=== PATIENT | female | born 1975 | race Caucasian/White ===

== ENCOUNTER 2023-10-20 02:27 | Observation (INO) | payer MEDICARE, OTHER ==
[~2023-10-20] VITALS: Ht 160 cm; Wt 66.5 kg
[2023-10-20] VITALS (20 sets, daily range): BP systolic 107–160; BP diastolic 74–86
[2023-10-20 02:59] LABS: Source, Urine Clean Catch
[2023-10-20 03:02] LABS: Bilirubin, Urine Neg (Neg); Blood, Urine 2+ (Neg); Glucose Qualitative, Urine Neg (Neg); Ketones, Urine Neg (Neg); Leukocyte Esterase, Urine Neg (Neg); Nitrite, Urine Neg (Neg); Protein, Urine Neg (Neg); Urobilinogen, Urine NORM (Normal)
[2023-10-20 03:13] LABS: BASOPHILS ABSOLUTE AUTO 0.09 K/mm3 (0.00-0.23); BASOPHILS PERCENT AUTO 1 % (0-2); EOSINOPHILS ABSOLUTE AUTO 0.31 K/mm3 (0.00-0.68); EOSINOPHILS PERCENT AUTO 3 % (0-6); Hematocrit 19.8 % (33.0-51.0); IMMATURE GRAN ABSOLUTE AUTO 0.06 K/mm3 (0.00-0.10); IMMATURE GRAN PERCENT AUTO 1 % (0-1); LYMPHOCYTES PERCENT AUTO 15 % (21-46); MONOCYTES ABSOLUTE AUTO 0.71 K/mm3 (0.16-1.47); MONOCYTES PERCENT AUTO 7 % (4-13); Mean Corpuscular HGB 19.1 pg (26.0-34.0); Mean Corpuscular HGB Conc 27.3 g/dL (31.5-36.5); Mean Corpuscular Volume 70 fL (80-100); Mean Platelet Volume 10.3 fL (9.1-12.4); NEUTROPHILS ABSOLUTE AUTO 7.09 K/mm3 (1.96-9.15); NEUTROPHILS PERCENT AUTO 73 % (41-73); Platelet Count 306 K/mm3 (150-400); RDW Coefficient Variation 19.9 % (11.7-14.2); RDW Standard Deviation 49.2 fL (35.1-46.3); Red Blood Cell Count 2.82 M/mm3 (3.80-5.20); White Blood Cell Count 9.76 K/mm3 (4.00-11.30)
[2023-10-20 03:25] LABS: Hemoglobin 5.4 g/dL (11.5-16.0)
[2023-10-20 03:33] LABS: Albumin, Blood 3.3 g/dL (3.4-5.0); Bilirubin, Total 0.1 mg/dL (0.1-1.0); Bun/Creatinine Ratio 35.8 (12.0-20.0); Creatinine, Blood 0.56 mg/dL (0.40-1.00); Globulin, Blood 3.3 g/dL (2.2-4.0); Potassium, Blood 4.4 mmol/L (3.5-5.5); Total Protein, Blood 6.6 g/dL (6.4-8.2)
[2023-10-20 03:36] LABS: International Normalized Ratio 0.94; Prothrombin Time Results 9.9 Sec (9.7-11.5)
[2023-10-20 04:29] LABS: Color, Urine Yellow (P-Yellow)
[2023-10-20 04:30] LABS: Appearance, Urine Clear (Clear)
[2023-10-20 04:32] LABS: Bacteria Rare /hpf; Squamous Epithelial Cells Not Seen /hpf (Few); White Blood Cells, Urine 0-2 /hpf (0-5)
--- NOTE | 2023-10-20 07:46 | NUR ---
SHIFT SUMMARY NOC. PT ARRIVED TO THE UNIT FROM ER AT 0620. REPORT RECEIVED FROM [employer]ATION[employer] MANAGER. PT HAD 1 UNIT OF BLOOD STARTED AT 0545 PRIOR TO TRANSFER. VITAL SIGNS STABLE UPON ARRIVAL. PT DENIES SOB OR CHEST PAIN. PT A/O X4. PT REPORTS BEING A CURRENT EVERYDAY SMOKER AND HAS A REAL ESTATE JOB TITLES ON PERSON. BLOOD PRODUCTS RUNNING AT A RATE OF 150 ON ARRIVAL. PT NOTIFIED OF SMOKING POLICY AND LOCKED REAL ESTATE JOB TITLES IN LOCK BOX ON THE UNIT. PT ORIENTED TO ROOM AND CALL LIGHT. PT INSTRUCTED TO CALL STAFF FOR CP, DIZZINESS, SOB OR ANY ABNORMAL SYMPTOMS. PT HAS MODERATE BLOOD ON HA PAD. PT RESTING WITH CALL LIGHT IN REACH.
--- NOTE | 2023-10-20 10:34 | NUR ---
second unit of blood administering at this time. pt tolerating well. currently sleeping in bed. pt npo at this time for possible procedure later in the afternoon. pt agreeable and educated on plan. pad changed this morning at 0730, small amount on pad. pt also had tampon in with large clot attached when removed. educated pt on importance of monitoring bleeding and using pads to observe. pt agreeable.
--- NOTE | 2023-10-20 11:26 | NUR ---
pad changed at this time. moderate amount of drainage on pad. 2nd unit of prbc continues to infuse. pt tolerating well.
--- NOTE | 2023-10-20 13:17 | NUR ---
TRANSFUSION DONE. PT TOLERATED WELL. NO SOB REPORTED. FEELS MORE ENERGETIC ABLE TO WALK TO RESTROOM WITH SBA NO WEAKNESS NOTED.
[2023-10-20 14:14] LABS: Hematocrit 24.6 % (33.0-51.0); Hemoglobin 7.2 g/dL (11.5-16.0); Mean Corpuscular HGB 21.6 pg (26.0-34.0); Mean Corpuscular HGB Conc 29.3 g/dL (31.5-36.5); Mean Corpuscular Volume 74 fL (80-100); Mean Platelet Volume 10.1 fL (9.1-12.4); Platelet Count 248 K/mm3 (150-400); RDW Coefficient Variation 22.8 % (11.7-14.2); RDW Standard Deviation 59.6 fL (35.1-46.3); Red Blood Cell Count 3.34 M/mm3 (3.80-5.20); White Blood Cell Count 7.26 K/mm3 (4.00-11.30)
--- NOTE | 2023-10-20 14:14 | NUR ---
pt out of room for procedure at this time.
[2023-10-20 14:45] LABS: BASOPHILS ABSOLUTE MAN 0.07 K/mm3 (0.00-0.23); BASOPHILS PERCENT MAN 1 % (0-2); EOSINOPHILS ABSOLUTE MAN 0.07 K/mm3 (0.00-0.68); EOSINOPHILS PERCENT MAN 1 % (0-6); LYMPHOCYTES % ATYPICAL MANUAL 1 % (0-0); LYMPHOCYTES ABSOLUTE MAN 2.32 K/mm3 (0.84-5.20); LYMPHOCYTES PERCENT MAN 31 % (21-46); MONOCYTES ABSOLUTE MAN 0.43 K/mm3 (0.16-1.47); MONOCYTES PERCENT MAN 6 % (4-13); NEUTROPHILS ABSOLUTE MAN 4.35 K/mm3 (1.96-9.15); SEG NEUTROPHILS PERCENT MAN 60 % (41-73); TOTAL CELLS COUNTED 100
--- NOTE | 2023-10-20 16:04 | NUR ---
pt arrived from procedure, able to stand and ambulate to restroom. scant amount of drainage on amy pad, changed on arrival. small amount of sanguinous out when pt attempted to void. she denies pain and reports feeling good at this time. excited to be able to eat and drink. currently resting in bed, denies sob.
--- NOTE | 2023-10-20 17:04 | NUR ---
SHIFT SUMMARY S/P EXAM UNDER ANESTHESIA. PT DENIES PAIN SINCE ARRIVING BACK TO UNIT. MINIMAL BLEEDING SINCE ARRIVAL CLEAN PAD IN PLACE. PT AMBULATING WELL TO RESTROOM NO WEAKNESS NOTED. REPORTS FEELING BETTER SINCE RECIEVING BLOOD. PLAN IS FOR POSSIBLE DISCHARGE TOMORROW WITH FOLLOW UP. PT TOLERATING DIET WELL.
--- NOTE | 2023-10-20 17:22 | NUR ---
PT PASSED A LARGE CLOT WHILE VOIDING. SMALL AMOUNT PRESENT ON HYMAN PAD WHEN SHE STOOD TO AMBULATE TO RESTROOM.
--- NOTE | 2023-10-20 22:41 | NUR ---
PT REPORTS HER COUSIN CHRISTIE GONZALEZ IS HER NEXT OF KIN AND HIS PHONE NUMBER IS [phone].
[2023-10-21 00:41] VITALS: BP 145/84
[2023-10-21 04:15] VITALS: BP 147/82
--- NOTE | 2023-10-21 04:31 | NUR ---
SHIFT SUMMARY NO ACUTE CHANGES THIS SHIFT. TYLENOL PRN FOR CRAMPY PAINS. SMALL AMOUNTS OF VAGINAL BLEEDING NOTED, BUT NO LARGE CLOTS. PT HAS BEEN INDEPENDENTLY AMBULATING HALLWAY. LUDWIG PO. VSS. USES CALL LIGHT APPROPRIATELY.
[2023-10-21 05:31] LABS: BASOPHILS ABSOLUTE AUTO 0.07 K/mm3 (0.00-0.23); BASOPHILS PERCENT AUTO 1 % (0-2); EOSINOPHILS ABSOLUTE AUTO 0.02 K/mm3 (0.00-0.68); EOSINOPHILS PERCENT AUTO 0 % (0-6); Hematocrit 26.1 % (33.0-51.0); Hemoglobin 7.5 g/dL (11.5-16.0); IMMATURE GRAN ABSOLUTE AUTO 0.07 K/mm3 (0.00-0.10); IMMATURE GRAN PERCENT AUTO 1 % (0-1); LYMPHOCYTES ABSOLUTE AUTO 1.95 K/mm3 (0.84-5.20); LYMPHOCYTES PERCENT AUTO 16 % (21-46); MONOCYTES ABSOLUTE AUTO 0.88 K/mm3 (0.16-1.47); MONOCYTES PERCENT AUTO 7 % (4-13); Mean Corpuscular HGB 21.6 pg (26.0-34.0); Mean Corpuscular HGB Conc 28.7 g/dL (31.5-36.5); Mean Corpuscular Volume 75 fL (80-100); Mean Platelet Volume 11.1 fL (9.1-12.4); NEUTROPHILS ABSOLUTE AUTO 9.35 K/mm3 (1.96-9.15); NEUTROPHILS PERCENT AUTO 76 % (41-73); Platelet Count 304 K/mm3 (150-400); RDW Coefficient Variation 22.9 % (11.7-14.2); RDW Standard Deviation 60.6 fL (35.1-46.3); Red Blood Cell Count 3.48 M/mm3 (3.80-5.20); White Blood Cell Count 12.34 K/mm3 (4.00-11.30)
[2023-10-21 07:03] VITALS: BP 134/67
--- NOTE | 2023-10-21 09:59 | NUR ---
Pt. is awake in bed and welcomes my visit. Pt. is pleasant but is unsettled by family issues. Listen with empathy and a calming presence. Pt. displays evidence of awareness and engagement. Pt verbalizes that she has secured housing in [place] and expects to be discharged today. Prayed for Pt. and with Pts. request prayed for specific request for specific need of her extended family. Pt. verbalized gratitude for the spiritual care visit.
--- NOTE | 2023-10-21 12:49 | NUR ---
DISCHARGE EDUCATION COMPLETE. PT PULLED OWN IV. NOW AWAITING RIDE FROM [facility] WHO PLAN TO BE HERE AT 1515. PT INDEPENDENT IN ROOM, USING CALL LIGHT FOR NEEDS.
--- NOTE | 2023-10-21 14:32 | NUR ---
PT LEFT UNIT AT THIS TIME
== END 2023-10-21 15:20 | disposition home or self-care (01) ==
LOC: ER 02:27 → MEDS 02:28 → ER 02:28 → SURS 02:28 → MEDS 02:28 → SURS 05:59
PROVIDERS: Emergency Medicine; Obstetrics & Gynecology; ADMIT Obstetrics & Gynecology
PROC: 0UDB7ZX Extraction of Endometrium, Via Natural or Artificial Opening, Diagnostic (ICD-10-PCS; principal; 2023-10-20 14:30)
DX: D25.0 Submucous leiomyoma of uterus (principal); D64.9 Anemia, unspecified; Z72.0 Tobacco use
CPT/HCPCS: 36415; 36430; 76830; 76856; 80053; 81001; 84703; 85025; 85610; 85730; 86850; 86900; 86901; 86923; 88305; 93005; 93010; 94760; 96361; 96374; 99285-25; A9270; G0378; J1100; J1885; J2250; J2405; J2704; J2916; J3010; J7030; J7050; J7120; P9016